=== PATIENT | male | born 1945 | race Caucasian/White ===

== ENCOUNTER 2018-07-10 07:53 | Inpatient (IN) | payer BC, MEDICARE ==
[~2018-07-10] VITALS: Ht 188 cm; Wt 90.9 kg
[2018-07-10 09:41] LABS: BASOPHILS # (AUTO) 0.2 X10'3 (0-0.2); BASOPHILS % (AUTO) 1.3 % (0-1); EOSINOPHILS % (AUTO) 0 % (0-6); HEMATOCRIT 50.9 % (42.0-52.0); HEMOGLOBIN 16.6 g/dl (14.0-17.9); LYMPHOCYTES # (AUTO) 0.7 X10'3 (1.1-4.8); LYMPHOCYTES % (AUTO) 5.4 % (21-51); MEAN CORPUSCULAR HEMOGLOBIN 25.7 PG (27.0-31.0); MEAN CORPUSCULAR HGB CONC 32.6 % (33.0-36.5); MEAN CORPUSCULAR VOLUME 78.7 FL (78-98); MEAN PLATELET VOLUME 6.9 FL (7.4-10.4); MONOCYTES # (AUTO) 0.9 X10'3 (0-0.9); MONOCYTES % (AUTO) 6.4 % (2-12); NEUTROPHILS # (AUTO) 11.9 X10'3 (1.8-7.7); NEUTROPHILS % (AUTO) 86.9 % (42-75); PLATELET COUNT 247 X10'3 (140-440); RED BLOOD COUNT 6.47 X10'6 (4.70-6.10); RED CELL DISTRIBUTION WIDTH 15.4 % (11.5-14.5); WHITE BLOOD COUNT 13.7 X10'3 (4.5-11.0)
[2018-07-10 09:50] LABS: INR 1.1 INR; PARTIAL THROMBOPLASTIN TIME 41 SECONDS (22-32); PROTHROMBIN TIME 11.4 SECONDS (9.0-12.0)
[2018-07-10 09:52] LABS: ALANINE AMINOTRANSFERASE 21 U/L (12-78); ALBUMIN 3.8 G/DL (3.4-5.0); ALBUMIN/GLOBULIN RATIO 0.7 (1.1-1.5); ALKALINE PHOSPHATASE 104 IU/L (46-116); ANION GAP 13 (8-16); ASPARTATE AMINO TRANSFERASE 11 U/L (10-37); BLOOD UREA NITROGEN 38 MG/DL (7-18); BUN/CREATININE RATIO 16.5 (5.4-32.0); CALCIUM 8.9 MG/DL (8.5-10.1); CHLORIDE 98 MMOL/L (99-107); POTASSIUM 4.8 MMOL/L (3.5-5.1); SODIUM 131 MMOL/L (135-145); TOTAL CARBON DIOXIDE 19.9 MMOL/L (24-32); TOTAL PROTEIN 9.2 G/DL (6.4-8.2); eGFR 28 ML/MIN
[2018-07-10 09:53] LABS: GLUCOSE 109 MG/DL (70-104)
[2018-07-10] MEDS ORDERED: FLO0.4C PO (09:54)
[2018-07-10] MEDS ORDERED: AMLO5TAB PO (09:54)
[2018-07-10] MEDS ORDERED: ATEN-169 PO (09:54)
[2018-07-10] MEDS ORDERED: FEBU40TA PO (09:54)
[2018-07-10] MEDS ORDERED: apixaban 5mg tablet PO ONE (11:18)
[2018-07-10] MEDS ORDERED: magnesium 4gm in 100ml NS 100 ML IV PRN (12:20)
[2018-07-10] MEDS ORDERED: magnesium 1gm/100ml D5W IVPB 100 ML IV PRN (12:20)
[2018-07-10] MEDS ORDERED: potassium Cl 40MEQ/NS 500ml 500 ML IV PRN ×2 (12:20)
[2018-07-10] MEDS ORDERED: magnesium Cl slow-release 64mg tablet PO PRN (12:20)
[2018-07-10] MEDS ORDERED: acetaminophen 325mg tablet PO PRN (12:20)
[2018-07-10] MEDS ORDERED: K and/or MAG REPLACEMENT MC SCH (12:20)
[2018-07-10] MEDS ORDERED: potassium Cl 20 mEq SR tablet PO PRN ×2 (12:20)
[2018-07-10] MEDS ORDERED: APIX5TAB3 PO (12:56)
[2018-07-10] MEDS ORDERED: normal saline 1000ml 1,000 ML IV ONE (13:05)
[2018-07-10 14:39] VITALS: BP 163/103
[2018-07-12 05:29] LABS: ANTITHROMBIN ACTIVITY 96 % (75-135); ANTITHROMBIN ANTIGEN 93 % (72-124); PROTEIN S, FREE 60 % (57-157); PROTEIN S, TOTAL 96 % (60-150)
== END 2018-07-10 14:37 | disposition home or self-care (01) | DRG 301 ==
LOC: ER 07:54 → ED HOLD 12:17
PROVIDERS: ADMIT Internal Medicine; ATTEND Internal Medicine
DX: I82.431 Acute embolism and thrombosis of right popliteal vein (principal); K30 Functional dyspepsia; I12.9 Hypertensive chronic kidney disease with stage 1 through stage 4 chronic kidney disease, or unspecified chronic kidney disease; N18.9 Chronic kidney disease, unspecified; N40.0 Benign prostatic hyperplasia without lower urinary tract symptoms; Z79.01 Long term (current) use of anticoagulants; Z79.899 Other long term (current) drug therapy; Z23 Encounter for immunization
CPT/HCPCS: 36415; 80053; 85025; 85300; 85301; 85303; 85305; 85306; 85610; 85730; 87070; 93971; 99285

== ENCOUNTER 2018-12-19 19:02 | Inpatient (IN) | payer BC, MEDICARE | END 2018-12-21 11:30 | disposition home or self-care (01) | LOC: ER 19:02 → ED HOLD 12-20 02:21 → PCU 3S 12-20 04:16 ==